=== PATIENT | female | born 1980 | race Two or more races ===

== ENCOUNTER 2020-03-03 00:24 | Inpatient (IN) | payer MEDICAID ==
[~2020-03-03] VITALS: Ht 154.9 cm; Wt 60.8 kg
[2020-03-03 01:00] VITALS: BP 99/60
--- NOTE | 2020-03-03 01:00 | NUR ---
COMPLIANCE ATTORNEY: ADMISSION 39 y/o Female direst admit from [place] ([facility]) Patient is A/O x4 Malian speaking, ERLIN Carpenter assisted with Malian translation. Patient reports abdominal cramping, no c/o nausea, no vomiting. Ambulates to the bathroom, no episode of diarrhea, urinated cloudy urine. Skin intact. Notified ELIOT Esparza for admission. Fall precaution maintained.
[2020-03-03] MEDS: IV NS 0.9% 1,000 ML IV PRN ×2 (01:52→20:50)
[2020-03-03] MEDS ORDERED: MAGNESIUM HYDROXIDE 30 ML UDC PO PRN (02:00)
[2020-03-03] MEDS ORDERED: METOCLOPRAMIDE HCL 10 MG/2 ML VIAL IV PRN (02:00)
[2020-03-03] MEDS ORDERED: Z GUARD REMEDY 2 OZ OINT TP PRN (02:00)
[2020-03-03] MEDS ORDERED: MAG HYDROX/AL HYDROX/SIMETH 30 ML UDC PO PRN (02:00)
[2020-03-03] MEDS ORDERED: ACETAMINOPHEN 325 MG TABLET PO PRN (02:00)
[2020-03-03 02:18] LABS: BASOPHILS % (AUTO) 0.2 % (0.0-2.0); EOSINOPHILS % (AUTO) 0.5 % (0.0-6.0); HEMATOCRIT 35 % (33-45); HEMOGLOBIN 11.7 g/dL (11.5-14.8); LYMPHOCYTES # (AUTO) 1.2 /CMM (0.8-4.8); MEAN CORPUSCULAR HGB CONC 33 g/dl (31.0-36.0); MEAN CORPUSCULAR VOLUME 89 fL (82-100); MONOCYTES # (AUTO) 0.3 /CMM (0.1-1.30); MONOCYTES % (AUTO) 2.6 % (2.0-12.0); NEUTROPHILS # (AUTO) 10.2 /CMM (1.8-8.9); NEUTROPHILS % (AUTO) 86.7 % (43.0-81.0); PLATELET COUNT (AUTO) 167 /CMM (150-450); RED BLOOD CELL COUNT(AUTO) 3.98 MIL/uL (4.0-5.2); WHITE BLOOD COUNT (AUTO) 11.8 K/uL (4.3-11.0)
[2020-03-03 02:30] LABS: ALBUMIN 2.6 g/dL (3.4-5.0); BILIRUBIN,TOTAL 0.4 mg/dL (0.2-1.0); CALCIUM, SERUM 8.2 mg/dL (8.5-10.1); MAGNESIUM 1.8 mg/dL (1.8-2.4); PHOSPHORUS 2.6 mg/dL (2.5-4.9); POTASSIUM 3.3 mmol/L (3.5-5.1); TOTAL PROTEIN, SERUM 6.4 g/dL (6.4-8.2)
[2020-03-03] MEDS: POTASSIUM CL. PREMIX PERIPHER. 50 ML IV SCH ×4 (03:28→19:29)
[2020-03-03 04:00] VITALS: BP 91/59
[2020-03-03] MEDS ORDERED: VANCOMYCIN 1.5 GM in IV D5W 500ml IV ONE (05:00)
[2020-03-03] MEDS ORDERED: ZOSYN IVPB 3.375 G in IV D5W 50ml IV ONE (05:00)
[2020-03-03] MEDS ORDERED: PIPERACILLIN /TAZOBACTAM 3.375 G VIAL IV ONE (05:18)
[2020-03-03] MEDS ORDERED: VANCOMYCIN 1 GM VIAL ONE ×2 (05:21→05:44)
[2020-03-03] MEDS ORDERED: PIPERACILLIN /TAZOBACTAM 3.375 G in IV D5W 50 ML IV SCH (06:00)
[2020-03-03] MEDS: ONDANSETRON HCL/PF 4 MG/2 ML VIAL IVP PRN (06:48)
--- NOTE | 2020-03-03 06:57 | NUR ---
MAINFRAME CONSULTANT: END OF SHIFT REPORT Patient in bed, awake. Sinus Rhythm in the Tele monitor with HR 88. NPO IVF infusing, IV antibiotic as scheduled. Episode of N/V medicated with PRN Zofran. Loose, liquid stool x1, stool collected for Cdiff < 3 days admission, send to lab. MRSA nares surveillance done. XR small bowel follow through by radiology done, result pending. Will endorse to oncoming RN>
[2020-03-03] MEDS ORDERED: PANTOPRAZOLE 40 MG TABLET.DR PO SCH (07:30)
--- NOTE | 2020-03-03 08:01 | NUR ---
Coat Room Attendant xray was taken at 0550 this morning for SBFT study. Awaiting to hear back from Radiologist to begin exam at bedside.
[2020-03-03] MEDS ORDERED: FEE PK DOSING 1 MIN EA MC ONE (08:06)
[2020-03-03] MEDS ORDERED: DIATR MEGLU/DIATRIZOATE SODIUM 120 ML BOTTLE (GASTROGRAPHIN) ONE (08:46)
--- NOTE | 2020-03-03 10:22 | NUR ---
RUGBY LEAGUE FOOTBALLER opening Notes Patient is calm and cooperative with no signs of distress and no shortness of breath in room air. Patient is NPO, Loose, stool x1 this morning. Right AC #20G and Left AC #20G both patent and intact. Bed is in low settings side rails up for safety. Call light is within reach. Will continue to monitor.
[2020-03-03] MEDS: PIPERACILLIN /TAZOBACTAM 3.375 G in IV D5W 100 ML IV SCH ×2 (10:54→20:29)
[2020-03-03 11:55] LABS: APPEARANCE,URINE CLEAR (CLEAR); BILIRUBIN,URINE NEGATIVE (NEGATIVE); BLOOD, URINE TRACE-INTA Ery/uL (NEGATIVE); COLOR,URINE YELLOW (YELLOW); KETONES,URINE NEGATIVE (NEGATIVE); LEUKOCYTE ESTERASE ,URINE NEGATIVE (NEGATIVE); NITRITE, URINE NEGATIVE (NEGATIVE); PROTEIN,URINE NEGATIVE (NEGATIVE); UGLUCOSE NEGATIVE (NEGATIVE); UROBILINOGEN,URINE 0.2 EU/dL (0.2)
[2020-03-03 11:57] LABS: BACTERIA,URINE None seen /HPF (None Seen); RBC,URINE 0-2 /HPF (0-2); SQUAMOUS EPITHELIAL CELL,UR Few /HPF (None Seen); WBC,URINE 0-2 /HPF (0-3)
[2020-03-03] MEDS: VANCOMYCIN 0.75 GM in IV D5W 250 ML IV SCH ×2 (14:47→22:36)
--- NOTE | 2020-03-03 16:14 | NUR ---
RN MS NOTES PT UNABLE TO TOLERATE NGT PLACEMENT, DR. RICHARD INFORMED.
[2020-03-03] MEDS: MORPHINE SULFATE INJ 2 MG/ML DISP.SYRIN IV PRN (16:23)
[2020-03-03] MEDS: PANTOPRAZOLE 40 MG VIAL IV SCH (17:52)
--- NOTE | 2020-03-03 18:34 | NUR ---
HOLE PUNCHER STRAP Closing Notes Patient is in bed resting. No signs of distress or shortness of breath in room air. Vitals WNL. Complain about pain and gave PRN pain medication. Patient is NPO. R AC #20G and L AC #20 G are intact and patent fluids are infusing. Scheduled medications were given. GI surgery consent was signed by patient. Bed is in low settings side rails up for safety. Call light is within reach. Will endorse to oncoming RN.
--- NOTE | 2020-03-03 19:08 | NUR ---
MS RN: RECEIVED PATIENT Patient in bed, assisted to the bathroom, pale and weak. Had loose, liquid stool. Provide BSC, fall precaution maintained, denies pain. IVF infusing.
[2020-03-03 19:24] VITALS: BP 96/61
[2020-03-03 20:00] VITALS: BP 108/64
[2020-03-03 20:16] VITALS: BP 108/64
[2020-03-04] MEDS: PIPERACILLIN /TAZOBACTAM 3.375 G in IV D5W 100 ML IV SCH ×3 (03:43→18:17)
--- NOTE | 2020-03-04 06:40 | NUR ---
MS RN: END OF SHIFT REPORT Patient in bed, awake. Adequate oxygenation on room air. IVF infusing, NPO. No c/o nausea, no vomiting. IV antibiotic as scheduled. Still with episode of loose/liquid stool x2, reports abdominal cramping after loose stool. C-diff stool result pending. Will endorse to oncoming RN.
[2020-03-04 06:53] LABS: BASOPHILS % (AUTO) 0.1 % (0.0-2.0); EOSINOPHILS % (AUTO) 1.9 % (0.0-6.0); HEMATOCRIT 37 % (33-45); LYMPHOCYTES # (AUTO) 0.9 /CMM (0.8-4.8); MEAN CORPUSCULAR HGB CONC 33 g/dl (31.0-36.0); MEAN CORPUSCULAR VOLUME 90 fL (82-100); MONOCYTES # (AUTO) 0.6 /CMM (0.1-1.30); MONOCYTES % (AUTO) 5.8 % (2.0-12.0); NEUTROPHILS # (AUTO) 9.4 /CMM (1.8-8.9); NEUTROPHILS % (AUTO) 84.2 % (43.0-81.0); PLATELET COUNT (AUTO) 192 /CMM (150-450); RED BLOOD CELL COUNT(AUTO) 4.08 MIL/uL (4.0-5.2); WHITE BLOOD COUNT (AUTO) 11.1 K/uL (4.3-11.0)
[2020-03-04 06:58] LABS: CALCIUM, SERUM 8.5 mg/dL (8.5-10.1); CREATININE 0.7 mg/dL (0.6-1.3); POTASSIUM 3.4 mmol/L (3.5-5.1)
[2020-03-04] MEDS: VANCOMYCIN 0.75 GM in IV D5W 250 ML IV SCH ×3 (07:07→22:55)
[2020-03-04 07:30] VITALS: BP 93/60
[2020-03-04 08:00] VITALS: BP 93/60
--- NOTE | 2020-03-04 08:00 | NUR ---
MS RN opening Notes Patient is calm and cooperative with no signs of distress and no shortness of breath in room air. Patient is NPO, Pt is compliant. Loose, stool x10 this morning. Collected stool for culture due to cholecystitis. Right AC #20G and Left AC #20G both patent and intact. With ongoing IVF NS running at 100 ml/hr infusing well.Bed is in low settings side rails up for safety. Call light is within reach. Will continue to monitor.
[2020-03-04] MEDS: POTASSIUM CL. PREMIX PERIPHER. 50 ML IV SCH ×4 (10:18→16:33)
[2020-03-04] MEDS: IV NS 0.9% 1,000 ML IV PRN (10:18)
--- NOTE | 2020-03-04 10:48 | NUR ---
REMOVED DELVALLE CATHETER AT 1048 WITH NO BLEEDING NOTED.PT TOLERATED WELL.DELVALLE BAG WAS 200 ML YELLOW URINE OUTPUT.
[2020-03-04] MEDS: ONDANSETRON HCL/PF 4 MG/2 ML VIAL IVP PRN (13:39)
[2020-03-04 15:10] LABS: THYROID STIMULATING HORMONE 1.654 uIU/mL (0.358-3.74)
[2020-03-04 16:00] VITALS: BP 111/71
[2020-03-04] MEDS: PANTOPRAZOLE 40 MG VIAL IV SCH (17:55)
--- NOTE | 2020-03-04 19:00 | NUR ---
PT STATED THAT SHE PASSED OUT DARK GREEN WATERY BM 13 X AND VOIDED X2.STOOL FOR C/S SENT TO LAB. PT USES THE BEDSIDE COMMODE WITH MINIMAL ASSISTANCE.GOOD PERICARE RENDERED.CALL LIGHT PLACED WITHIN REACH.
[2020-03-04 20:00] VITALS: BP 108/64
--- NOTE | 2020-03-05 01:52 | NUR ---
MS/TELE/RN PATIENT IS SLEEPING AT THIS TIME, APPEAR COMFORTABLE, NO SIGNS OF DISTRESS NOTED, CALL LIGHT IN REACH. WILL CONTINUE TO MONITOR.
[2020-03-05] MEDS: PIPERACILLIN /TAZOBACTAM 3.375 G in IV D5W 100 ML IV SCH ×3 (02:58→18:10)
[2020-03-05] MEDS: IV NS 0.9% 1,000 ML IV PRN (02:59)
[2020-03-05] MEDS: VANCOMYCIN 0.75 GM in IV D5W 250 ML IV SCH ×3 (05:55→21:54)
--- NOTE | 2020-03-05 06:33 | NUR ---
MS/TELE/RN PATIENT IS STILL SLEEPING AT THIS TIME, APPEAR COMFORTABLE, NO SIGNS OF DISTRESS NOTED, CALL LIGHT IN REACH, ALL NEEDS ATTENDED AT THIS TIME, WILL CONTINUE TO MONITOR.
[2020-03-05 08:00] VITALS: BP 101/62
--- NOTE | 2020-03-05 08:00 | NUR ---
MS RN opening Notes Patient is calm and cooperative with no signs of distress and no shortness of breath in room air. Patient is NPO, Pt is compliant. Loose, stool x2 this morning. Pt stated she feels better compared from yesterday and was able to sleep good during the night. Right AC #20G and Left AC #20G both patent and intact. AM care done and was able to freshen up by the sink. Sponge bath given while sitting in the commode and wants to be unhooked on pt's IVF infusion- delaying the administration of IV Magnesium. Also pt is so sensitive with the K+ IV adjusting the infusion at a very slow rate according to pt's tolerance. With ongoing IVF NS running at 100 ml/hr infusing well.Bed is in low settings side rails up for safety. Call light is within reach. Will continue to monitor.
[2020-03-05 08:15] LABS: BASOPHILS % (AUTO) 0.2 % (0.0-2.0); EOSINOPHILS % (AUTO) 2.9 % (0.0-6.0); HEMATOCRIT 33 % (33-45); HEMOGLOBIN 11.2 g/dL (11.5-14.8); LYMPHOCYTES # (AUTO) 1.2 /CMM (0.8-4.8); LYMPHOCYTES % (AUTO) 15.2 % (20.0-44.0); MEAN CORPUSCULAR HGB CONC 34 g/dl (31.0-36.0); MEAN CORPUSCULAR VOLUME 88 fL (82-100); MONOCYTES # (AUTO) 0.6 /CMM (0.1-1.30); MONOCYTES % (AUTO) 8.1 % (2.0-12.0); NEUTROPHILS # (AUTO) 5.6 /CMM (1.8-8.9); NEUTROPHILS % (AUTO) 73.6 % (43.0-81.0); PLATELET COUNT (AUTO) 219 /CMM (150-450); RED BLOOD CELL COUNT(AUTO) 3.79 MIL/uL (4.0-5.2); WHITE BLOOD COUNT (AUTO) 7.6 K/uL (4.3-11.0)
[2020-03-05 08:32] LABS: CALCIUM, SERUM 8.2 mg/dL (8.5-10.1); CREATININE 0.7 mg/dL (0.6-1.3); MAGNESIUM 1.7 mg/dL (1.8-2.4); POTASSIUM 3.1 mmol/L (3.5-5.1)
[2020-03-05] MEDS ORDERED: Magnesium 1GM/D5W 100ML PREMIX 50 ML IV SCH (09:00)
[2020-03-05] MEDS: Potassium Chloride 20 MEQ in IV NS 0.9% 1,000 ML IV SCH (09:48)
[2020-03-05] MEDS: POTASSIUM CL. PREMIX PERIPHER. 50 ML IV SCH ×2 (11:24→14:48)
[2020-03-05] MEDS: ONDANSETRON HCL/PF 4 MG/2 ML VIAL IVP PRN (14:53)
--- NOTE | 2020-03-05 15:08 | NUR ---
Pt started crying when the 2nd bag of K+IV bag replacement was infused.We'll infuse K+IV 30 meq with Lidocaine.
[2020-03-05 16:00] VITALS: BP 98/65
[2020-03-05] MEDS: Potassium Chloride 10 MEQ, LIDOCAINE HCL/PF 1% 1 ML in IV D5W 50 ML IV SCH ×3 (16:36→21:16)
--- NOTE | 2020-03-05 16:36 | NUR ---
Started administering the 2nd bag K+ 10 meq IV with Lidocaine but still the pt is c/o that it still hurts.Adjusted the rate according to pt's comfort. Returned the 2 bags regular K+IV in the [facility].
[2020-03-05] MEDS: PANTOPRAZOLE 40 MG VIAL IV SCH (16:45)
[2020-03-05] MEDS: MORPHINE SULFATE INJ 2 MG/ML DISP.SYRIN IV PRN (18:09)
--- NOTE | 2020-03-05 19:00 | NUR ---
PT CONTINUES TO BE SENSITIVE ON POTASSIUM IV ADMINISTRATION EVEN WITH LIDOCAINE ADJUSTED INFUSION RATE ACCORDING TO PT'S COMFORT. ENDORSED 2 BAGS OF POTASSIUM IV FOR REPLACEMENT TO BATTERY VENT PLUG INSERTER NURSE TO BE INFUSED. WILL MONITOR.CALL LIGHT PLACED WITHIN REACH.
[2020-03-05 20:00] VITALS: BP 101/62
--- NOTE | 2020-03-05 20:23 | NUR ---
MS/TELE/RN ON INITIAL ROUNDING AT 1930, PATIENT WAS AWAKE, ALERT, ORIENTED, COMFORTABLE, NO C/O PAIN, NO DISTRESS NOTED, IVF AND ANTIBIOTIC ANTIBIOTIC, WERE INFUSING, CALL LIGHT IN REACH. WILL MONITOR.
--- NOTE | 2020-03-06 02:00 | NUR ---
MS/TELE/RN PATIENT IS SLEEPING, APPEAR COMFORTABLE, NO DISTRESS NOTED, CALL LIGHT IN REACH. WILL CONTINUE TO MONITOR.
[2020-03-06] MEDS: PIPERACILLIN /TAZOBACTAM 3.375 G in IV D5W 100 ML IV SCH ×3 (03:31→19:57)
[2020-03-06] MEDS: VANCOMYCIN 0.75 GM in IV D5W 250 ML IV SCH (06:15)
--- NOTE | 2020-03-06 06:22 | NUR ---
MS/TELE/RN PATIENT IS STILL SLEEPING AT THIS TIME, APPEAR COMFORTABLE, NO SIGNS OF DISTRESS NOTED, ALL NEEDS ATTENDED AT THIS TIME, WILL CONTINUE TO MONITOR.
[2020-03-06 07:59] VITALS: BP 98/71
[2020-03-06 08:00] VITALS: BP 98/71
[2020-03-06 08:18] LABS: CALCIUM, SERUM 8.3 mg/dL (8.5-10.1); CREATININE 0.7 mg/dL (0.6-1.3); POTASSIUM 3.3 mmol/L (3.5-5.1)
[2020-03-06] MEDS: ONDANSETRON HCL/PF 4 MG/2 ML VIAL IVP PRN (08:39)
[2020-03-06] MEDS ORDERED: TRAMADOL HCL 50 MG TABLET PO PRN (11:00)
[2020-03-06] MEDS ORDERED: DIATR MEGLU/DIATRIZOATE SODIUM 120 ML BOTTLE (GASTROGRAPHIN) ONE (11:28)
--- NOTE | 2020-03-06 12:30 | NUR ---
Pole Framer Machine images Xray KUB obtained @1054. Patient attempted to drink gastrograffin by mouth, felt nauseous @1145. JU Saul gave nausea med @1155. Patient attempted second time to drink gastrograffin @1215, vomiting after a few sips of gastrograffin. Patient refused to continue this small bowel study with drinking oral contrast @1220. JU Saul is aware that patient refusing this exam.
--- NOTE | 2020-03-06 12:35 | NUR ---
Patient unable to finish small bowel through test due to nausea. Santi Goodman informed.
--- NOTE | 2020-03-06 12:39 | NUR ---
Per Rex Tafoya start pt on clear liquid and advance as tolerated
[2020-03-06] MEDS: Potassium Chloride 20 MEQ in IV NS 0.9% 1,000 ML IV SCH ×2 (12:48→18:40)
[2020-03-06 16:00] VITALS: BP 104/69
[2020-03-06] MEDS: PANTOPRAZOLE 40 MG VIAL IV SCH (16:41)
--- NOTE | 2020-03-06 18:27 | NUR ---
Patient resting in bed. Breathing unlabored and even on room air , VS are stable and afebrile. No N/V or abdominal pain since 1200. Patient tolerated full liquid diet well. IV fluid running as ordered. Patient is using BSC for safety. All needs attended.Safety precaution in place, call light within reach. Will endorse to next shift for DEEPAK .
--- NOTE | 2020-03-06 19:36 | NUR ---
MS RN OPENING NOTES PATIENT AWAKE IN BED. A/OX4. ON RA. NO S/S OF ACUTE RESPIRATORY DISTRESS; BREATHING IS EVEN AND UNLABORED. PATIENT C/O OF ABDOMINAL PAIN RATED 6/10 HOWEVER STATES THAT PAIN IS TOLERABLE AND DOES NOT NEED PAIN MEDICATION AT THIS TIME. IV PRESENT ON LEFT AC, SIZE 20, INTACT & PATENT WITH KCL 20 MEQ IN NS RUNNING AT 60 ML/HR. SAFETY MEASURES IN PLACE AND PATIENT'S NEEDS MET. BED LOCKED, SIDE RAILS X2, HOB ELEVATED, CALL LIGHT WITHIN REACH. WILL CONTINUE TO MONITOR.
[2020-03-06 20:00] VITALS: BP 102/59
[2020-03-07] MEDS: PIPERACILLIN /TAZOBACTAM 3.375 G in IV D5W 100 ML IV SCH ×2 (03:05→10:24)
[2020-03-07 06:44] LABS: CALCIUM, SERUM 8.7 mg/dL (8.5-10.1); CREATININE 0.7 mg/dL (0.6-1.3); POTASSIUM 3.1 mmol/L (3.5-5.1)
[2020-03-07 07:09] LABS: BASOPHILS % (AUTO) 0.3 % (0.0-2.0); EOSINOPHILS % (AUTO) 3.1 % (0.0-6.0); HEMATOCRIT 34 % (33-45); HEMOGLOBIN 11.5 g/dL (11.5-14.8); LYMPHOCYTES # (AUTO) 1.5 /CMM (0.8-4.8); LYMPHOCYTES % (AUTO) 25.7 % (20.0-44.0); MEAN CORPUSCULAR HGB CONC 33 g/dl (31.0-36.0); MEAN CORPUSCULAR VOLUME 87 fL (82-100); MONOCYTES # (AUTO) 0.5 /CMM (0.1-1.30); MONOCYTES % (AUTO) 9.5 % (2.0-12.0); NEUTROPHILS # (AUTO) 3.5 /CMM (1.8-8.9); NEUTROPHILS % (AUTO) 61.4 % (43.0-81.0); PLATELET COUNT (AUTO) 286 /CMM (150-450); RED BLOOD CELL COUNT(AUTO) 3.93 MIL/uL (4.0-5.2); WHITE BLOOD COUNT (AUTO) 5.7 K/uL (4.3-11.0)
--- NOTE | 2020-03-07 07:26 | NUR ---
MS RN CLOSING NOTES PATIENT SLEEPING. A/OX4. ON RA. NO S/S OF ACUTE RESPIRATORY DISTRESS; BREATHING IS EVEN AND UNLABORED. NO C/O PAIN. IV PRESENT ON RIGHT HAND, SIZE 22, INTACT & PATENT WITH ZOSYN RUNNING AT 25 ML/HR. SAFETY MEASURES IN PLACE AND PATIENT'S NEEDS MET. BED LOCKED, SIDE RAILS X2, HOB ELEVATED, CALL LIGHT WITHIN REACH. WILL ENDORSE TO DAY SHIFT NURSE PLAN OF CARE.
[2020-03-07 08:00] VITALS: BP 109/63
--- NOTE | 2020-03-07 08:00 | NUR ---
RN OPENING NOTES RECEIVED PT. IN BED. NO ACUTE DISTRESS NOTED. PT. A&OX4. PT. ON ROOM AIR, SATURATING WELL AT 98%. PT. IV ACCESS RIGHT HAND, INTACT, PATENT, FLUSHED WELL. PT. SAFETY MAINTAINED. CALL LIGHT WITHIN REACH. WILL CONTINUE TO MONITOR.
[2020-03-07] MEDS ORDERED: POTASSIUM CHLORIDE 20 MEQ POWDER PACKET PO ONE ×3 (08:30→12:30)
[2020-03-07 08:33] VITALS: BP 109/63
[2020-03-07] MEDS: ONDANSETRON HCL/PF 4 MG/2 ML VIAL IVP PRN (09:27)
[2020-03-07] MEDS: Potassium Chloride 20 MEQ in IV NS 0.9% 1,000 ML IV SCH (11:36)
--- NOTE | 2020-03-07 13:17 | NUR ---
RN NOTE RECEIVED ORDER TO UPGRADE THE PATIENT`S DIET TO SOFT DIET AND THE PATIENT TO EAT BEFORE DISCHARGE. NOTED AND CARRIED OUT. WILL SERVE THE FOOD AND IF TOLERATES THE PATIENT WILL BE DISCHARGED.
== END 2020-03-07 15:30 | disposition home or self-care (01) | DRG 720 ==
LOC: TELE 00:24 → MED 12:10
PROVIDERS: ADMIT Internal Medicine; ATTEND Nurse Practitioner Acute Care
DX: A41.9 Sepsis, unspecified organism (principal); N17.0 Acute kidney failure with tubular necrosis; K56.609 Unspecified intestinal obstruction, unspecified as to partial versus complete obstruction; E87.2 Acidosis; K56.7 Ileus, unspecified; E87.6 Hypokalemia; K58.0 Irritable bowel syndrome with diarrhea; D72.829 Elevated white blood cell count, unspecified; N10 Acute pyelonephritis; D72.825 Bandemia; R19.7 Diarrhea, unspecified
CPT/HCPCS: 36415; 74018; 74250-TC; 80048-TC; 80053-TC; 80061-TC; 80202-TC; 81000-TC; 83605-TC; 83735-TC; 84100-TC; 84443-TC; 84703-TC; 85025-TC; 87045-TC; 87081-TC; C9113; G0378; J2270; J2405; J2543; J2765; J3370; J3475; J3480; J3490; J7030; J7050; J7060; Q9963